=== PATIENT | male | born 1965 | race Two or more races ===

== ENCOUNTER 2016-08-18 23:06 | Emergency (ER) | payer SELFPAY ==
[~2016-08-18] VITALS: Ht 170.2 cm; Wt 86.2 kg
[2016-08-18] MEDS ORDERED: IBUPROFEN600 MG ORAL (23:47)
[2016-08-19 00:20] VITALS: BP 121/73
[2016-08-19 00:21] VITALS: BP 119/83
--- NOTE | 2016-08-19 00:30 | Emergency Room Report ---
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 trauma however he does work on his knees Patient also plays soccer and is fairly active Denies any obvious acute trauma however Discomfort is 3/10 Localized to the lateral aspect of the knee also behind any denies any fevers or chills Allergies: Coded Allergies: PENICILLINS (Verified Allergy, Unknown, 08/18/16) Patient History Past Medical History: see triage record Pertinent Family History: none Reviewed Nursing Documentation: PMH: Agreed, PSxH: Agreed Nursing Documentation-PMH Past Medical History: No Stated History Review of Systems All Other Systems: negative except mentioned in HPI Physical Exam Vital Signs Date Time Temp Pulse Resp B/P Pulse Ox O2 Delivery O2 Flow Rate FiO2 08/18/16 23:22 98.4 67 18 119/83 98 Room Air Sp02 EP Interpretation: reviewed, normal General Appearance: well appearing, no apparent distress Head: normocephalic, atraumatic Eyes: bilateral eye EOMI, bilateral eye PERRL ENT: hearing grossly normal, normal pharynx, TMs + canals normal, uvula midline Neck: full range of motion, supple, no meningismus, no bony tend Respiratory: lungs clear, normal breath sounds, no rhonchi, no respiratory distress, no retraction, no accessory muscle use Cardiovascular #1: normal peripheral pulses, regular rate, rhythm, no edema, no gallop, no JVD, no murmur Gastrointestinal: normal bowel sounds, non tender, soft, no mass, no organomegaly, non-distended, no guarding, no hernia, no pulsatile mass, no rebound Genitourinary: no CVA tenderness Musculoskeletal: swelling - Knee effusion is noted to the left side, no obvious erythema, patient's knee is freely mobile no signs of any septic joint Neurologic: oriented x3, responsive, disability specialist III-XII nml as tested, motor strength/ tone normal, sensory intact Psychiatric: mood/affect normal Skin: other - As above Lymphatic: normal inspection, no adenopathy Medical Decision Making Diagnostic Impression: Primary Impression: knee effusion ER Course Given the presentation imaging study was obtained no obvious acute bony pathology There is consideration for possible Miramontes cyst Patient also pains and spends a lot of time on the knees Also given the recent right-sided effusion followed by now the left side less likely sign of septic joint this was considered Patient was discussed that he requires close outpatient followup MRI imaging will be needed to give final definitive diagnosis The patient stable for close outpatient followup There was no emergency indication for drainage Other X-Ray Diagnostic Results Other X-Ray Diagnostic Results : EP Interpretation: Yes Findings: no fractures, no dislocation, no soft tissue swelling, other - effusion Number of Views: 3 - left knee Last Vital Signs Date Time Temp Pulse Resp B/P Pulse Ox O2 Delivery O2 Flow Rate FiO2 08/19/16 00:21 98.4 18 119/83 98 Room Air 08/19/16 00:20 65 Status: improved Disposition: HOME, SELF-CARE Condition: Improved Scripts Ibuprofen* (MOTRIN*) 600 Mg Tablet 600 MG ORAL Q8H Y for For Pain, #20 TAB 0 Refills Prov: KRZYSZTOF JAQUEZ D.O. 08/18/16 Referrals: NOT CHOSEN [facility]/,REFERRING (PCP) Patient Instructions: Knee Effusion, [id number], Miramontes Cyst Additional Instructions: Patient is provided with the discharge instructions notified to follow up with primary doctor in the next 2-3 days otherwise return to the er with any worsening symptoms. KRZYSZTOF JAQUEZ D.O. Aug 19, 2016 00:30
--- NOTE | 2016-08-19 12:50 | Diagnostic Imaging Report ---
Indication: PAIN Technique: 3 views of the knee Comparison: None Findings:There is suspicion of a suprapatellar effusion. No acute fractures. No dislocations. There are medial osteophytes. The joint spaces are preserved Impression:Positive for joint effusion Minimal degenerative change No acute process
== END 2016-08-19 00:22 | disposition home or self-care (01) ==
LOC: EMR 23:30
DX: M25.462 Effusion, left knee (principal); Z88.0 Allergy status to penicillin
CPT/HCPCS: 99283